=== PATIENT | female | born 1955 | race Caucasian/White ===

== ENCOUNTER 2017-01-15 07:58 | Inpatient (IN) | payer BC ==
[2016-12-30 13:23] VITALS: BMI 33.0
--- NOTE | 2016-12-30 13:52 | PAT Medication Instructions ---
Service Date Dec 30, 2016. Current Home Medication List Atorvastatin (Lipitor), 40 MG PO QPM Cholecalciferol (D3 Maximum Strength), 1 CAP PO QAM Cyanocobalamin (Vitamin B-12), 1,000 MCG PO QAM Cyclobenzaprine Hcl (Flexeril), 10 MG PO HS PRN for Muscle Spasms Docusate Sodium (Colace), 2 TAB PO BID Gabapentin (Neurontin), 100 MG PO HS Levocetirizine Dihydrochloride (Xyzal), 1 TAB PO QPM Levothyroxine Sodium (Synthroid), 137 MCG PO 6 DAYS A WEEK Levothyroxine Sodium (Synthroid), MCG PO TUESDAYS Lorazepam (Ativan), 0.5 MG PO HS Montelukast Sodium (Singulair), 10 MG PO QAM Oxycodone/Acetaminophen 10MG/325MG (Percocet 10MG/325MG), 1 TAB PO HS PRN for Pain Pantoprazole (Protonix), 40 MG PO BID Propranolol (Inderal), 10 MG PO BID Saccharomyces Boulardii (Probiotic), Unknown Dose QAM Medication Instructions For Your Scheduled Surgery - Hold the following medications the morning of surgery: Docusate Sodium (Colace), 2 TAB PO BID Cholecalciferol (D3 Maximum Strength), 1 CAP PO QAM Saccharomyces Boulardii (Probiotic), Unknown Dose QAM Cyanocobalamin (Vitamin B-12), 1,000 MCG PO QAM - Take the following medications the morning of surgery with a sip of water OTHERWISE NOTHING TO EAT OR DRINK AFTER MIDNIGHT: Pantoprazole (Protonix), 40 MG PO BID Propranolol (Inderal), 10 MG PO BID Montelukast Sodium (Singulair), 10 MG PO QAM Oxycodone/Acetaminophen 10MG/325MG (Percocet 10MG/325MG), 1 TAB PO HS PRN for Pain (may take up to 4 hours prior to surgery if needed) - Take the following medications as scheduled the night before surgery: Levothyroxine Sodium (Synthroid) Docusate Sodium (Colace), 2 TAB PO BID Cyclobenzaprine Hcl (Flexeril), 10 MG PO HS PRN for Muscle Spasms Lorazepam (Ativan), 0.5 MG PO HS Gabapentin (Neurontin), 100 MG PO HS Pantoprazole (Protonix), 40 MG PO BID Propranolol (Inderal), 10 MG PO BID Atorvastatin (Lipitor), 40 MG PO QPM Levocetirizine Dihydrochloride (Xyzal), 1 TAB PO QPM Oxycodone/Acetaminophen 10MG/325MG (Percocet 10MG/325MG), 1 TAB PO HS PRN for Pain If you have any questions please call us at [phone] or [phone] or [phone]
[2016-12-30 14:20] LABS: BASO % 0.6 %; BASO ABS # 0.05 K/uL (0-0.2); COMPLETE YES; EOS % 1.6 %; HEMATOCRIT 44.5 % (37-47); IG% 0.3 %; LYMPH % 29.7 %; LYMPH ABS # 2.67 K/uL (1.2-3.4); MEAN CELL VOLUME 91.2 fL (80-100); MEAN CORPUSCULAR HEMOGLOBIN 31.6 pg (25-34); MEAN CORPUSCULAR HGB CONC 34.6 g/dl (32-36); MEAN PLATELET VOLUME 8.8 fL (7.4-10.4); MONO % 9.7 %; NEUT % 58.1 %; PLATELET COUNT 128 K/uL (130-400); RED BLOOD COUNT 4.88 M/uL (4.2-5.4)
--- NOTE | 2016-12-30 14:24 | DIAGNOSTIC IMAGING REPORT ---
CHEST PREADMISSION(PA/LAT) CLINICAL HISTORY: Preoperative evaluation. COMPARISON STUDY: Chest radiograph March 06, 2013. FINDINGS: Lung volumes are normal. There is no pneumothorax or pleural effusion. Cardiac size is normal. Mediastinal contours are normal. There is no evidence of pulmonary edema. A 5 mm subpleural nodular density within the left lower lung is likely benign. IMPRESSION: No acute cardiopulmonary findings. Electronically signed by: Peter Cochran M.D. 12/30/2016 2:21 PM Dictated Date/Time: 12/30/2016 2:20 PM
[2016-12-30 14:51] LABS: URINE APPEARANCE CLEAR (CLEAR); URINE BILIRUBIN NEG (NEG); URINE COLOR YELLOW; URINE NITRITE NEG (NEG); URINE PH 7.5 (4.5-7.5); URINE SPECIFIC GRAVITY 1.009 (1.000-1.030); UROBILINOGEN NEG (NEG)
[2016-12-30 14:54] LABS: MANUAL MICROSCOPIC REQUIRED? NO; REVIEW REQ? NO
[2016-12-30 15:30] LABS: CALCIUM 9.5 mg/dl (8.5-10.1)
[2016-12-30 15:58] LABS: BUN/CREATININE RATIO 14.9 (10-20); CREATININE 0.8 mg/dl (0.60-1.20); POTASSIUM 3.9 mmol/L (3.5-5.1)
[~2017-01-15] VITALS: Ht 160 cm; Wt 86.6 kg
[2017-01-15] VITALS (17 sets, daily range): BP systolic 127–153; BP diastolic 72–88; PULSE 16–80; TEMP 36.3–36.8; O2SAT 95–100; Ht 160 cm; Wt 86.6 kg
[~2017-01-15 07:58] MED LIST: ANCEF - ALLERGY NOTED TO ORDERED MEDICATION SCH; CEFAZOLIN 2000 MG/60 ML D5W IV SCH; CHOL1CAP79 PO; CLC100X PO; CYAN10005 PO; CYCL10TA6 PO; LACTATED RINGER'S 1000ML 1,000 ML IV SCH; LEVO125T72 PO; LEVO5TAB2 PO; LORA-741 PO; LPT/40 PO; MONT1TAB3 PO; NRN/100 PO; OXYC-106 PO; PANT40TA PO; PROP10TA7 PO; SACC250C11
[2017-01-15] MEDS ORDERED: MIDAZOLAM HCL 1 MG/ML 2ML VIAL ONE (08:33)
[2017-01-15] MEDS ORDERED: FENTANYL CITRATE INJ 50 MCG/1 ML 2 ML VIAL ONE ×3 (08:33→09:33)
--- NOTE | 2017-01-15 08:40 | History & Physical Bridge Note ---
H&P Re-Evaluation Bridge Note: I have examined the patient, reviewed the History & Physical and in the interval since the performance of the History & Physical I have noted the following changes of clinical significance: No changes noted
--- NOTE | 2017-01-15 08:41 | History and Physical ---
History & Physical Date January 15, 2017. History of Present Illness The patient is a 61 year old female with complaints of Past Medical/Surgical History neck and arm pain Additional History Hepatic Disease: No Endocrine Disorder: No Kidney Disease: No Hypertension: No Heart Disease: No Bleeding Tendencies: No Infectious Diseases: No Allergies Coded Allergies: Aspirin (Verified Allergy, Severe, anaphylaxis, 01/15/17) Penicillins (Verified Allergy, Intermediate, HIVES, 01/15/17) Home Medications Scheduled Atorvastatin (Lipitor), 40 MG PO QPM Cholecalciferol (D3 Maximum Strength), 1 CAP PO QAM Cyanocobalamin (Vitamin B-12), 1,000 MCG PO QAM Docusate Sodium (Colace), 2 TAB PO BID Gabapentin (Neurontin), 100 MG PO HS Levocetirizine Dihydrochloride (Xyzal), 1 TAB PO QPM Levothyroxine Sodium (Synthroid), 137 MCG PO 6 DAYS A WEEK Levothyroxine Sodium (Synthroid), MCG PO TUESDAYS Lorazepam (Ativan), 0.5 MG PO HS Montelukast Sodium (Singulair), 10 MG PO QAM Pantoprazole (Protonix), 40 MG PO BID Propranolol (Inderal), 10 MG PO BID Saccharomyces Boulardii (Probiotic), Unknown Dose QAM Scheduled PRN Cyclobenzaprine Hcl (Flexeril), 10 MG PO HS PRN for Muscle Spasms Oxycodone/Acetaminophen 10MG/325MG (Percocet 10MG/325MG), 1 TAB PO HS PRN for Pain Physical Examination Skin: warm/dry, no rash Eyes: normal inspection, EOMI, sclerae normal ENT: normal ENT inspection, pharynx normal Head: normocephalic, atraumatic Neck: supple, no adenopathy, trachea midline Respiratory/Chest: lungs clear, normal breath sounds, no respiratory distress Cardiovascular: regular rate, rhythm, no edema, no murmur Abdomen / GI: normal bowel sounds, non tender Back: normal inspection Extremities: normal inspection, normal range of motion Neurologic/Psych: no motor/sensory deficits, alert, normal reflexes, oriented x 3 Diagnosis cervical stenosis Plan of Treatment corpectomy C5 discectomy C6-7 fusion C4-C7
[2017-01-15] MEDS ORDERED: BACITRACIN 50000 UNIT VIAL ONE (09:00)
[2017-01-15] MEDS ORDERED: SODIUM CHLORIDE 0.9% PF 50 ML VIAL ONE (09:00)
[2017-01-15] MEDS ORDERED: NURSING VERBAL MED ORDER STA ×2 (09:07→13:48)
[2017-01-15] MEDS ORDERED: ICU SEVERE HYPERGLYCEMIA PROTOCOL ONE (09:15)
[2017-01-15] MEDS ORDERED: NURSING ICU ELECTROLYTE ORDER ONE (09:15)
[2017-01-15] MEDS ORDERED: NURSING DECISION MEDICATION ORDER SCH (09:15)
[2017-01-15] MEDS ORDERED: HYDROmorphone INJ 2 MG/ML SYR/VIAL ONE ×2 (09:33→11:06)
[2017-01-15] MEDS ORDERED: LABETALOL HCL IV 5 MG/ML 20ML IV PRN (09:45)
[2017-01-15] MEDS ORDERED: EpHEDrine SULFATE INJ 50 MG/ML AMP IV PRN (09:45)
[2017-01-15] MEDS ORDERED: ATROPINE SULFATE 0.1 MG/ML 5ML SYR IV PRN (09:45)
[2017-01-15] MEDS ORDERED: MEPERIDINE HCL 25 MG/ML CARP IV PRN (09:45)
[2017-01-15] MEDS ORDERED: ONDANSETRON INJ 2 MG/ML 2 ML VIAL IV PRN ×2 (09:45→11:15)
[2017-01-15] MEDS ORDERED: PROPOFOL IV EMULSION 10 MG/ML 20 ML VIAL IV ONE (10:54)
[2017-01-15] MEDS ORDERED: ROCURONIUM BROMIDE 10 MG/ML 5 ML VIAL ONE (10:54)
[2017-01-15] MEDS ORDERED: DEXAMETHASONE SOD INJ 4 MG/ML VIAL ONE (10:54)
[2017-01-15] MEDS ORDERED: ONDANSETRON INJ 2 MG/ML 2 ML VIAL ONE ×2 (10:54→11:07)
[2017-01-15] MEDS ORDERED: LIDOCAINE HCL 2% 2 ML VIAL (20MG/ML) ONE (10:54)
[2017-01-15] MEDS ORDERED: FLOSEAL HEMOSTATIC MATRIX 5ML TOP ONE (11:01)
[2017-01-15] MEDS ORDERED: PHENYLEPHRINE 100MCG/ML 5ML SYR ONE (11:07)
[2017-01-15] MEDS ORDERED: GLYCOPYRROLATE INJ 0.2 MG/ML VIAL ONE (11:07)
[2017-01-15] MEDS ORDERED: NEOSTIGMINE METHYLSULFATE 1 MG/ML 10ML VIAL ONE (11:07)
[2017-01-15] MEDS ORDERED: LORAZEPAM 0.5 MG TAB PO PRN (11:15)
[2017-01-15] MEDS ORDERED: RACEPINEPHRINE 2.25% NEBU SOLN 0.5 ML VIAL INH PRN (11:15)
[2017-01-15] MEDS ORDERED: DO NOT ADMINISTER PNEUMOCOCCAL VACCINE PRN ×2 (11:15)
[2017-01-15] MEDS ORDERED: HYDROmorphone INJ 1 MG/ML SYR IV PRN (11:15)
[2017-01-15] MEDS ORDERED: MAGNESIUM HYDROXIDE SUSP 30 ML UDC PO PRN (11:15)
[2017-01-15] MEDS ORDERED: DiphenhydrAMINE HCL 50 MG/ML VIAL IV PRN (11:15)
[2017-01-15] MEDS ORDERED: LORAZEPAM INJ 0.5 MG in SYRINGE 0.75 ML IV PRN (11:15)
[2017-01-15] MEDS ORDERED: DO NOT ADMINISTER FLU VACCINE PRN ×3 (11:15)
[2017-01-15] MEDS ORDERED: DEXAMETHASONE INJ 8 MG in SYRINGE 0 ML IV PRN (11:15)
[2017-01-15] MEDS ORDERED: NALOXONE HCL 0.4 MG/1 ML VIAL/CARP IV PRN (11:15)
[2017-01-15] MEDS ORDERED: ACETAMINOPHEN IV 100 ML IV PRN (11:15)
[2017-01-15] MEDS: FENTANYL CITRATE INJ 50 MCG/1 ML 2 ML VIAL IV PRN ×4 (11:26→11:47)
--- NOTE | 2017-01-15 11:50 | OPERATIVE REPORT ---
DATE OF OPERATION: 01/15/2017 PREOPERATIVE DIAGNOSIS: Cervical spondylosis with myeloradiculopathy. POSTOPERATIVE DIAGNOSIS: Same. PROCEDURE PERFORMED: 1. Anterior cervical corpectomy C5. 2. Anterior cervical discectomy C6-C7. 3. Anterior cervical arthrodesis C4-C6 and C6-C7. 4. Placement of PEEK cage 23 mm in height at C4-C6 and 7 mm at C6-C7. 5. Placement of locally harvested morcellized autograft combined with Katlyn bone grafting in the interbody cages. 6. Application of Macias plate and screws from C4-C7. SURGEON: Dr. Jose Philip. MACHINE STONECUTTER: Kashmir Huffman PA-C. Due to the complex nature of the procedure, the entire surgery was performed with the dental chairside assistant of Kashmir Huffman PA-C. The senior administrative assistant, under direct supervision, was involved in the actual performance of all aspects of the surgical procedure including hemostasis, tissue retraction and incision, instrument management, patient positioning, and wound closure. ANESTHESIA: General. DISPOSITION: The patient awakened and taken to PACU in stable condition. HISTORY OF PATIENT'S PROBLEMS: This is a 61-year-old female who presents with above-mentioned diagnosis. After failing an extensive course of nonoperative care, elected to undergo the above-mentioned procedure. Risks, benefits, pros, cons, and alternatives were outlined in detail preoperatively. OPERATION AND FINDINGS: PROCEDURE: The patient was met with preoperatively, case discussed and all questions were addressed. At that point the patient was taken back to operative suite and after undergoing successful general intubation by the department of anesthesia was placed in supine position on Keagan table with head in Bruce head of quality. All bony prominences were well padded and the eyes were inspected to ensure there was no external pressure placed upon them. At this point the anterior cervical spine was prepped and draped in normal sterile fashion. With assistance of fluoroscopy, we identified the C5-C6 disc space and transverse incision was placed along the right anterior aspect of the cervical spine overlying this region. Sharp dissection with the assistance of Bovie cautery was performed down to and exposing the anterior cervical spine from C4-C7. A self-retaining retractor was placed. We verified our position with fluoroscopy. A complete discectomy of C4-5 was performed out to the uncovertebral joints bilaterally followed by C5-C6. Austin distracting pins were then placed in C4 and C6 to distract across C5 vertebral body. A complete corpectomy was then performed removing all posterior annular fibers as well as a longitudinal ligament for adequate decompression. Endplates were then burred to subcortical bleeding bone and a 23 mm PEEK cage filled with Katlyn bone grafting, locally harvested morselized autograft tapped into position. Distracting apparatus was removed and we proceeded to C6-C7. Again, a complete discectomy was performed out to the uncovertebral joints bilaterally. Austin distracting pins were utilized to assist us in our visualization. Endplates were then burred to subcortical bleeding bone and a 7 mm PEEK cage filled with Katlyn bone grafting and locally harvested morselized autograft tapped in position. Distractor apparatus was removed. All anterior osteophytes burred to a smooth cortical surface and a Macias plate and screws applied with the assistance of fluoroscopy. The incision was then copiously irrigated, explored to ensure there was no damage to surrounding structures or remaining bleeding, 10 round KAM drain inserted then closed with 2-0 Vicryl in the fascia, 4-0 Monocryl for final skin closure. Steri-Strips and sterile dressing placed. The patient was awakened and taken to PACU in stable condition. I attest to the content of the Intraoperative Record and any orders documented therein. Any exceptio ns are noted below.
[2017-01-15] MEDS: HYDROmorphone INJ 1 MG/ML SYR IV PRN ×3 (11:54→12:00)
--- NOTE | 2017-01-15 12:52 | Anesthesiology Progress Note ---
Anesthesia Post Op Note Date & Time January 15, 2017 at 12:52 Vital Signs Pain Intensity: 2 Vital Signs Past 12 Hours Date Time Temp Pulse Resp B/P Pulse Ox O2 Delivery O2 Flow Rate FiO2 01/15/17 12:45 54 18 154/76 100 Nasal Cannula 2 01/15/17 12:40 135/76 01/15/17 12:37 59 18 100 01/15/17 12:37 60 18 01/15/17 12:35 134/76 01/15/17 12:33 36.7 66 18 134/76 100 Nasal Cannula 2 01/15/17 12:32 56 16 99 01/15/17 12:32 55 16 01/15/17 12:31 60 12 01/15/17 12:31 58 12 100 01/15/17 12:30 141/84 01/15/17 12:26 57 16 01/15/17 12:26 58 16 130/93 99 01/15/17 12:21 57 13 01/15/17 12:21 56 13 122/76 99 01/15/17 12:16 71 15 144/68 99 01/15/17 12:16 70 15 01/15/17 12:11 46 13 99 01/15/17 12:11 46 13 01/15/17 12:10 131/70 01/15/17 12:06 55 12 130/73 96 01/15/17 12:06 56 12 01/15/17 12:01 63 20 99 01/15/17 12:01 62 20 01/15/17 12:00 135/76 01/15/17 11:56 65 15 99 01/15/17 11:56 68 15 01/15/17 11:55 127/78 01/15/17 11:53 124/82 01/15/17 11:51 56 13 97 01/15/17 11:51 55 13 01/15/17 11:45 55 16 114/86 99 Nasal Cannula 2 01/15/17 11:35 60 15 142/74 100 Mask 10 01/15/17 11:25 64 22 139/76 99 Mask 10 01/15/17 11:16 36.0 81 14 127/73 97 Mask 10 01/15/17 08:14 36.7 64 18 142/83 98 Room Air Notes Mental Status: alert / awake / arousable, participated in evaluation Pt Amnestic to Procedure: Yes Nausea / Vomiting: adequately controlled Pain: adequately controlled Airway Patency, RR, SpO2: stable & adequate BP & HR: stable & adequate Hydration State: stable & adequate Anesthetic Complications: no major complications apparent
[2017-01-15] MEDS ORDERED: OXYCODONE HCL IR 5 MG TAB (IMMEDIATE RELEASE) ONE (13:13)
--- NOTE | 2017-01-15 14:14 | DIAGNOSTIC IMAGING REPORT ---
Cervical spine CERVICAL 2 OR 3 VIEWS CLINICAL HISTORY: C6-C7 ACDF operative evaluation TECHNIQUE: Image intensifier COMPARISON STUDY: None FINDINGS: 2 views the image intensifier were obtained. These show evidence for an anterior fusion from C4 through C7. There is a corpectomy at C5. Disc spaces are present. Alignment is grossly anatomic. IMPRESSION: Anterior fusion and corpectomy. Electronically signed by: Vishnu Bazan M.D. 01/15/2017 2:13 PM Dictated Date/Time: 01/15/2017 2:12 PM
[2017-01-15] MEDS ORDERED: RXC5 PO (14:18)
--- NOTE | 2017-01-15 14:18 | Discharge Instructions ---
Discharge Instructions Date of Service January 15, 2017. Admission Reason for Admission: Spinal Stenosis Discharge Discharge Diagnosis / Problem: stenosis Discharge Goals Goal(s): Improve function Activity Recommendations Activity Limitations: per Instructions/Follow-up section . Current Hospital Diet Patient's current hospital diet: Clear Liquid Diet Discharge Diet Recommended Diet: Regular Diet Procedures Procedures Performed: C6-C7 Anterior Cervical Discectomy and Fusion; Removal of Intervertebral Disc / Decompression; Placement of Prosthetic Spacer / with the use of Katlyn Allograft, Anterior Plate and Screw Fixation; C5 Corpectomy Pending Studies Studies pending at discharge: no Medical Emergencies . Who to Call and When: Medical Emergencies: If at any time you feel your situation is an emergency, please call 911 immediately. . Non-Emergent Contact Non-Emergency issues call your: Primary Care Provider . "Provider Documentation" section prepared by Jose Philip. . VTE Core Measure Inpt VTE Proph given/why not?: Tian Whitfield, JO's
[2017-01-15] MEDS: SODIUM CHLORIDE 0.9% 1000ML 1,000 ML IV SCH (14:42)
[2017-01-15] MEDS ORDERED: SCOPOLAMINE 1.5 MG TDSY TD SCH (15:00)
[2017-01-15] MEDS: DEXAMETHASONE INJ 6 MG in SYRINGE 0 ML IV SCH (15:44)
[2017-01-15] MEDS: CHECK SCOPOLAMINE PATCH PLACEMENT SCH (15:44)
[2017-01-15] MEDS: CLINDAMYCIN IV 600 MG in DEXTROSE 5% ADD-VANTAGE 50ML 50 ML IV SCH (17:42)
[2017-01-15] MEDS ORDERED: GABAPENTIN 100 MG CAP PO SCH (21:00)
[2017-01-15] MEDS ORDERED: ATORVASTATIN 40 MG TAB PO SCH (21:00)
[2017-01-15] MEDS: PROPRANOLOL HCL 10 MG TAB PO SCH (22:08)
[2017-01-15] MEDS: PANTOprazole SOD 40 MG TAB PO SCH (22:09)
[2017-01-15] MEDS: DOCUSATE SODIUM 100 MG CAP PO SCH (22:09)
[2017-01-15] MEDS: OXYCODONE HCL IR 5 MG TAB (IMMEDIATE RELEASE) PO PRN (22:17)
[2017-01-16] VITALS (16 sets, daily range): BP systolic 120–138; BP diastolic 77–84; PULSE 54–78; TEMP 36.6–37; O2SAT 93–98
[2017-01-16] MEDS: CLINDAMYCIN IV 600 MG in DEXTROSE 5% ADD-VANTAGE 50ML 50 ML IV SCH ×2 (00:12→08:58)
[2017-01-16] MEDS: SODIUM CHLORIDE 0.9% 1000ML 1,000 ML IV SCH (00:12)
[2017-01-16] MEDS: DEXAMETHASONE INJ 6 MG in SYRINGE 0 ML IV SCH ×2 (00:13→08:19)
[2017-01-16] MEDS: OXYCODONE HCL IR 5 MG TAB (IMMEDIATE RELEASE) PO PRN ×4 (00:14→14:14)
[2017-01-16] MEDS: CHECK SCOPOLAMINE PATCH PLACEMENT SCH ×2 (00:14→07:17)
[2017-01-16] MEDS ORDERED: LEVOTHYROXINE 137 MCG TAB PO SCH (06:30)
[2017-01-16] MEDS: PROPRANOLOL HCL 10 MG TAB PO SCH (08:58)
[2017-01-16] MEDS: PANTOprazole SOD 40 MG TAB PO SCH (08:58)
[2017-01-16] MEDS: DOCUSATE SODIUM 100 MG CAP PO SCH (08:58)
[2017-01-16] MEDS ORDERED: MONTELUKAST SOD 10 MG TAB PO SCH (09:00)
--- NOTE | 2017-01-16 15:39 | DISCHARGE SUMMARY ---
PRINCIPAL DIAGNOSES: Cervical spondylosis, myeloradiculopathy. HOSPITAL COURSE FOLLOWS: On 01/15/2017 the patient underwent anterior cervical decompression and fusion, tolerated this well and taken to the orthopedic floor postoperatively. Postop day #1, she was up and ambulatory, swallowing well, arm symptoms improved. No hoarseness. Pain controlled. Subsequently discharged home. Discharge orders and instructions can be found on the chart for further review.
[2017-01-17] MEDS ORDERED: BISACODYL 5 MG TABEC PO PRN (06:00)
[2017-01-17] MEDS ORDERED: BISACODYL 10 MG SUPP PR PRN (06:00)
[2017-01-17] MEDS ORDERED: POLYETHYLENE (MIRALAX) 17 GM PACK PO SCH (09:00)
[2017-01-19] MEDS ORDERED: LEVOTHYROXINE 137 MCG TAB PO SCH (06:30)
== END 2017-01-16 14:20 | disposition home or self-care (01) | DRG 473 ==
LOC: ENRESERVDT → ENRESERVTM → C.ACU 07:58 → C.3E 08:50
PROVIDERS: ADMIT Orthopaedic Surgery Orthopaedic Surgery of the Spine; ATTEND Orthopaedic Surgery Orthopaedic Surgery of the Spine
PROC: 0RG2070 Fusion of 2 or more Cervical Vertebral Joints with Autologous Tissue Substitute, Anterior Approach, Anterior Column, Open Approach (ICD-10-PCS; principal; 2017-01-15 10:15)
PROC: 0RG20A0 Fusion of 2 or more Cervical Vertebral Joints with Interbody Fusion Device, Anterior Approach, Anterior Column, Open Approach (ICD-10-PCS; principal; 2017-01-15 10:15)
PROC: 0RT30ZZ Resection of Cervical Vertebral Disc, Open Approach (ICD-10-PCS; principal; 2017-01-15 10:15)
DX: M47.12 Other spondylosis with myelopathy, cervical region (principal); M47.22 Other spondylosis with radiculopathy, cervical region; M47.892 Other spondylosis, cervical region; Z79.899 Other long term (current) drug therapy

== ENCOUNTER 2023-02-17 11:31 | Inpatient (IN) ==
--- NOTE | 2023-01-22 15:05 | PAT Medication Instructions ---
Medication Instructions Date of Service January 22, 2023 Home Medications Lactobacillus acidophilus 10 billion cell capsule (Probiotic) 1 dose PO QAM atorvastatin 40 mg tablet 40 mg PO HS cholecalciferol (vitamin D3) 50 mcg (2,000 unit) capsule (Vitamin D3) 2,000 unit PO QAM cyclobenzaprine 10 mg tablet 10 mg PO HS PRN levocetirizine 5 mg tablet (Xyzal) 5 mg PO HS levothyroxine 100 mcg tablet 100 mcg PO QAM montelukast 10 mg tablet (Singulair) 10 mg PO QAM pantoprazole 40 mg tablet,delayed release (Protonix) 40 mg PO BID propranolol 10 mg tablet 10 mg PO BID acetaminophen 500 mg tablet (Pain Reliever (acetaminophen)) 1,000 mg PO UD PRN DO NOT take the morning of surgery Lactobacillus acidophilus 10 billion cell capsule (Probiotic) 1 dose PO QAM cholecalciferol (vitamin D3) 50 mcg (2,000 unit) capsule (Vitamin D3) 2,000 unit PO QAM Take morning of surgery With a small sip of water, OTHERWISE NOTHING TO EAT OR DRINK AFTER MIDNIGHT: levothyroxine 100 mcg tablet 100 mcg PO QAM montelukast 10 mg tablet (Singulair) 10 mg PO QAM pantoprazole 40 mg tablet,delayed release (Protonix) 40 mg PO BID propranolol 10 mg tablet 10 mg PO BID acetaminophen 500 mg tablet (Pain Reliever (acetaminophen)) 1,000 mg PO UD PRN (if needed) Take evening before surgery atorvastatin 40 mg tablet 40 mg PO HS cyclobenzaprine 10 mg tablet 10 mg PO HS PRN(if needed) levocetirizine 5 mg tablet (Xyzal) 5 mg PO HS pantoprazole 40 mg tablet,delayed release (Protonix) 40 mg PO BID propranolol 10 mg tablet 10 mg PO BID acetaminophen 500 mg tablet (Pain Reliever (acetaminophen)) 1,000 mg PO UD PRN (if needed) Other Notes If you have any questions please call us at [phone] or [phone] or [phone] or [phone]
--- NOTE | 2023-02-03 11:50 | Anesthesiology Consultation ---
Date of Service February 03, 2023 Assessment & Plan (1) Encounter for pre-operative examination: Chart Review Chart Review: Acceptable Risk for Surgery (pending PAT Covid test and PCP clearance 02/09/23) and Patient seen in Pre Admission Testing Awaiting PCP clearance scheduled 02/09/23 Per [facility] appt on 02/03/23, patient denies any recent travel or large group activities. Pt admits to recent allergy symptoms. No known Covid exposures in the past 21 days. Denies testing Covid positive in the past 90 days. Pt is vaccinated for Covid. Preop Covid testing done at [facility] appt 02/03/23= results pending. Educated on importance of using Covid precautions one week prior to surgery ACDF C6-C7, Kumar C5, C4-C5 fusion 01/15/17= Done under [place] with Grade 1 view with MAC #3. ETT #7.0 Teaching & Discussion Pre-Anesthesia Teaching/Discussion Notes: Instructed NPO after midnight before surgery,except medications with 15 cc of water. Medication instructions provided according to the [facility] guidelines. History Surgery Operation Date: 02/17/23 13:15 Proposed Procedures p L2-L4 Decompression and Fusion, L4-L5 Hardware Removal, Spinal Cord Monitoring - Jose Philip, Height/Weight Height: 5 ft 4 in Weight: 77 kg Allergies Allergy/AdvReac Type Severity Reaction Status Date / Time aspirin Allergy Unknown anaphylaxis Verified 01/22/23 13:04 Penicillins Allergy Unknown HX HIVES Verified 01/22/23 13:04 Medications Home Medications Medication Instructions Recorded Confirmed Last Taken Lactobacillus acidophilus 10 1 dose PO QAM 08/16/18 01/22/23 08/23/18 06:30 billion cell capsule (Probiotic) atorvastatin 40 mg tablet 40 mg PO HS 08/16/18 01/22/23 08/22/18 19:00 cholecalciferol (vitamin D3) 50 2,000 unit PO QAM 08/16/18 01/22/23 08/23/18 06:30 mcg (2,000 unit) capsule (Vitamin D3) cyclobenzaprine 10 mg tablet 10 mg PO HS PRN MUSCLE SPASMS 08/16/18 01/22/23 Unknown levocetirizine 5 mg tablet (Xyzal) 5 mg PO HS 08/16/18 01/22/23 08/22/18 19:00 levothyroxine 100 mcg tablet 100 mcg PO QAM 08/16/18 01/22/23 08/24/18 03:30 montelukast 10 mg tablet 10 mg PO QAM 08/16/18 01/22/23 08/23/18 06:30 (Singulair) pantoprazole 40 mg tablet,delayed 40 mg PO BID 08/16/18 01/22/23 08/24/18 03:30 release (Protonix) propranolol 10 mg tablet 10 mg PO BID 08/16/18 01/22/23 08/24/18 03:30 acetaminophen 500 mg tablet (Pain 1,000 mg PO UD PRN ACHES AND PAINS 01/22/23 01/22/23 Unknown Reliever (acetaminophen)) Past Medical History Medical History (Updated 02/03/23 @ 15:12 by Celeste Craven PA-C) Back problem GERD (gastroesophageal reflux disease) CONTROLLED History of cleft palate S/P REPAIR AT AGE 4- complete repair No current issues History of colon polyps Precancerous polpys- next c-scope 2024 History of pyloric stenosis as a child S/P REPAIR IN INFANCY Hyperlipidemia Hypertension Hypothyroidism S/p partial thyroidectomy due to hyperthyroidism Seasonal allergies Sleep apnea CPAP- using without water (due to recall)- was told okay by [facility] - encouraged to follow up with PCP at 02/03/23 PAT appt Thrombocytopenia Chronic and mild No hx of follow up with hematology Plts at PAT appt 02/03/23 were 122 Exercise / Class Metabolic Activity II 4-5 Yardwork/Stairs/Walk up hill (one flight of stairs - no chest pain or SOB ) Past Family History Family History Other Atrial fibrillation Hypertension Rheumatoid arthritis Past Surgical History Surgical History Fusion of spine ACDF C6-C7; C5 CORPECTOMY, C4-C7 FUSION= 01/15/17= GRADE 1 VIEW, MAC 3, ETT 7.0 L4-L5 FUSION= 03/03/13= DVL X1, ETT 7.5 AT [facility] [place] LIMITED ROM TILTING HEAD BACK. History of adenoidectomy History of appendectomy History of arthroscopy LEFT KNEE History of cardiac cath 10+ YEARS AGO= NO STENTS History of cleft palate S/P REPAIR AT AGE 4 History of colonoscopy History of esophagogastroduodenoscopy (EGD) History of hysterectomy ATIYA/LSO History of laparoscopy 2/2 ENDOMETRIOSIS History of lumbar spinal fusion History of salpingo-oophorectomy RIGHT History of thyroidectomy, subtotal 2/2 HYPERTHROIDISM History of tonsillectomy History of total left knee replacement History of tracheostomy IN [place]ANC[place] PRIOR TO PYLORIC STENOSIS DIAGNOSIS/REPAIR Past Anesthesia History No Hx of Anesthesia Complications and No Family Hx of Anesthesia Complications History of PONV No Hx of PONV and No Hx of Motion Sickness Social History Smoking Status: Current every day smoker tobacco type: cigarettes Smoking cigarettes per day: 3/4 PPD/ADVISED NPO Do You Dip or Chew Tobacco: No Hx Alcohol Use: Yes Alcohol type: beer alcohol intake frequency: a few times a month Hx Substance Use: No substance use type: does not use Review of Systems Patient denies chest pain, shortness of breath, dyspnea on exertion, cough, wheezing, palpitations. No hx of seizures, stroke, [place]. No hx of blood clots or blood transfusions Physical Exam Vital Signs VITALS BP 159/65 P 61 TEMP 98.3 SP02 99% RESP 16 Constitutional no acute distress ENMT Mouth: no TMJ clicking Thyromental Distance: < 3.5 Finger Breadths (3.0) Mallampati Class: I (cleft palate repair scar noted to palate ) Caps to side teeth Missing molars and side teeth Neck + limited neck extension Respiratory normal respiratory effort; no respiratory distress Auscultation: lungs clear to auscultation bilaterally; no wheezes Cardiovascular Rate/Rhythm: regular rate and regular rhythm Heart Sounds: no murmur Vessels: no carotid bruit Musculoskeletal Spine: + pain with cervical ROM (minimal ) Extremities: extremities normal to inspection Psychiatric Orientation: alert Lab Results Anesthesia Preop Results Results Anesthesia Widget: WBC 9.53 K/ul (4.8-10.8) 02/03/23 Hgb 14.6 g/dl (12.0-16.0) 02/03/23 Hct 43.5 % (37.0-47.0) 02/03/23 Plt 122 K/uL (130-400) L 02/03/23 Na 140 mmol/L (136-145) 02/03/23 K 4.1 mmol/L (3.5-5.1) 02/03/23 Cl 106 mmol/L (98-107) 02/03/23 CO2 27 mmol/L (21-32) 02/03/23 BUN 9 mg/dl (6-23) 02/03/23 Creat 0.77 mg/dl (0.6-1.2) 02/03/23 Glucose Level 141 mg/dl (70-99(Fasting)) H 02/03/23 PT 11.2 Seconds (9.0-12.0) 02/03/23 PTT 30.7 Seconds (21.0-31.0) 02/03/23 INR 1.0 (0.9-1.1) 02/03/23 Urine Color Yellow 02/03/23 Urine Appearance Clear (Clear) 02/03/23 Urine pH 5.5 (4.5-7.5) 02/03/23 Urine Specific [place] 1.017 (1.000-1.030) 02/03/23 Urine Protein Negative (Negative) 02/03/23 Urine Glucose (UA) Negative (Negative) 02/03/23 Urine Ketones Trace (Negative) H 02/03/23 Urine Blood Negative (Negative) 02/03/23 Urine Nitrite Negative (Negative) 02/03/23 Urine Bilirubin Negative (Negative) 02/03/23 Urine Urobilinogen Negative (Negative) 02/03/23 Urine Leukocyte Esterase Negative (Negative) 02/03/23 Blood Type O Positive 02/03/23 Antibody Screen NEGATIVE 02/03/23 Testing Laboratory Results Chronic thrombocytopenia since at least 2018 - stable and mildly improved from previous Electrocardiogram Date: 02/03/23 Findings: + SB @ (59bpm ) Otherwise normal EKG per cardio Chest X-Ray Date: 02/03/23 Findings: + NAD
[~2023-02-17 11:31] MED LIST changes: +ACETAMINOPHEN 500 MG TAB PO SCH; -ANCEF - ALLERGY NOTED TO ORDERED MEDICATION SCH; -CEFAZOLIN 2000 MG/60 ML D5W IV SCH; -CHOL1CAP79 PO; -CLC100X PO; +CLINDAMYCIN/D5W 900 MG/50 ML BAG IV SCH; -CYAN10005 PO; -CYCL10TA6 PO; +CeleBREX 200 MG CAP PO SCH; +FAMOTIDINE/PF 20 MG/2 ML VIAL IV ONE; +GABAPENTIN 300 MG CAP PO SCH; -LACTATED RINGER'S 1000ML 1,000 ML IV SCH; -LEVO125T72 PO; -LEVO5TAB2 PO; -LORA-741 PO; -LPT/40 PO; +LR 15ML/HR IV SCH; -MONT1TAB3 PO; -NRN/100 PO; -OXYC-106 PO; -PANT40TA PO; -PROP10TA7 PO; -SACC250C11
--- NOTE | 2023-02-17 11:59 | History & Physical Bridge Note ---
Date of Service February 17, 2023 History & Physical Bridge Note I have examined the patient, reviewed the History & Physical and in the interval since the performance of the History & Physical I have noted the following changes of clinical significance: no changes noted
--- NOTE | 2023-02-17 12:01 | History & Physical Report ---
Date of Service February 17, 2023 Assessment & Plan (1) Neurogenic claudication due to lumbar spinal stenosis: Plan: L2-L4 decompression and fusion, L4-L5 hardware removal lumbar spine History of Present Illness Chief Complaint: back and leg pain Primary Care Provider: Andreina Silverio Patient has undergone extensive course of nonoperative care and he has continued back and bilateral leg pain is here for surgical intervention. Allergies Allergy/AdvReac Type Severity Reaction Status Date / Time aspirin Allergy Unknown anaphylaxis Verified 02/17/23 11:57 Penicillins Allergy Unknown HX HIVES Verified 02/17/23 11:57 Home Medications Medication Instructions Recorded Confirmed Type Lactobacillus acidophilus 10 1 dose PO QAM 08/16/18 01/22/23 History billion cell capsule (Probiotic) atorvastatin 40 mg tablet 40 mg PO HS 08/16/18 01/22/23 History cholecalciferol (vitamin D3) 50 2,000 unit PO QAM 08/16/18 01/22/23 History mcg (2,000 unit) capsule (Vitamin D3) cyclobenzaprine 10 mg tablet 10 mg PO HS PRN MUSCLE SPASMS 08/16/18 01/22/23 History levocetirizine 5 mg tablet (Xyzal) 5 mg PO HS 08/16/18 01/22/23 History levothyroxine 100 mcg tablet 100 mcg PO QAM 08/16/18 01/22/23 History montelukast 10 mg tablet 10 mg PO QAM 08/16/18 01/22/23 History (Singulair) pantoprazole 40 mg tablet,delayed 40 mg PO BID 08/16/18 01/22/23 History release (Protonix) propranolol 10 mg tablet 10 mg PO BID 08/16/18 01/22/23 History acetaminophen 500 mg tablet (Pain 1,000 mg PO UD PRN ACHES AND PAINS 01/22/23 01/22/23 History Reliever (acetaminophen)) Past Med/Surg History Medical History (Updated 02/17/23 @ 12:01 by Jose Philip DO) Back problem GERD (gastroesophageal reflux disease) CONTROLLED History of cleft palate S/P REPAIR AT AGE 4- complete repair No current issues History of colon polyps Precancerous polpys- next c-scope 2024 History of pyloric stenosis as a child S/P REPAIR IN INFANCY Hyperlipidemia Hypertension Hypothyroidism S/p partial thyroidectomy due to hyperthyroidism Seasonal allergies Sleep apnea CPAP- using without water (due to recall)- was told okay by [employer] supply store - encouraged to follow up with PCP at 02/03/23 [facility] appt Thrombocytopenia Chronic and mild No hx of follow up with hematology Plts at [facility] appt 02/03/23 were 122 Surgical History Fusion of spine ACDF C6-C7; C5 CORPECTOMY, C4-C7 FUSION= 01/15/17= GRADE 1 VIEW, MAC 3, ETT 7.0 L4-L5 FUSION= 03/03/13= DVL X1, ETT 7.[address] [facility] LIMITED ROM TILTING HEAD BACK. History of adenoidectomy History of appendectomy History of arthroscopy LEFT KNEE History of cardiac cath 10+ YEARS AGO= NO STENTS History of cleft palate S/P REPAIR AT AGE 4 History of colonoscopy History of esophagogastroduodenoscopy (EGD) History of hysterectomy ATIYA/LSO History of laparoscopy 2/2 ENDOMETRIOSIS History of lumbar spinal fusion History of salpingo-oophorectomy RIGHT History of thyroidectomy, subtotal 2/2 HYPERTHROIDISM History of tonsillectomy History of total left knee replacement History of tracheostomy IN INFANCY PRIOR TO PYLORIC STENOSIS DIAGNOSIS/REPAIR Family History Other Atrial fibrillation Hypertension Rheumatoid arthritis Social History Smoking Status: Current every day smoker Cigarettes Per Day: 3/4 PPD/ADVISED NPO; Second Hand Exposure: No; Do You Dip or Chew Tobacco: No; Hx Alcohol Use: Yes Alcohol type: beer Hx Substance Use: No Preferred Language: Slovenian Communication Ability: Effective Visual Impairment: No Limitations Director Of Sustainable Design Required: No Beliefs That Will Affect Care: Anglican Anglican Beliefs: ANABAPTIST marital status: Current Living Situation: Spouse and Family Current Living Situation Comment: , SON,HIS GIRLFRIEND AND HIS 3 CHILDREN. Other Information That Helps Us Care for You: No Feels Safe at Home: Yes Assistive Devices: CPAP Physical Exam Physical Exam: Patient is alert and oriented Heart regular rhythm Lungs clear
[2023-02-17] MEDS ORDERED: LIDOCAINE 2% 2 ML VIAL/AMP(20MG/ML) INFIL ONE (12:39)
[2023-02-17] MEDS ORDERED: ROCURONIUM BROMIDE 10 MG/ML 5 ML VIAL IV ONE ×6 (12:39→15:47)
[2023-02-17] MEDS ORDERED: fentaNYL citrate PF 100 MCG/2 ML VIAL ONE ×2 (12:39→15:47)
[2023-02-17] MEDS ORDERED: ONDANSETRON INJ 2 MG/ML 2 ML VIAL ONE (12:39)
[2023-02-17] MEDS ORDERED: DEXAMETHASONE SOD INJ 4 MG/ML VIAL ONE (12:39)
[2023-02-17] MEDS ORDERED: PROPOFOL IV EMULSION 10 MG/ML 20 ML VIAL IV ONE (12:39)
[2023-02-17] MEDS ORDERED: MIDAZOLAM HCL 1 MG/ML 2ML VIAL ONE (12:43)
[2023-02-17] MEDS ORDERED: ONDANSETRON INJ 2 MG/ML 2 ML VIAL IV PRN ×2 (13:07→18:23)
[2023-02-17] MEDS ORDERED: HYDROmorphone INJ 2 MG/ML SYR/VIAL IV PRN (13:07)
[2023-02-17] MEDS ORDERED: ATROPINE SULFATE 0.1 MG/ML 10ML SYR IV PRN (13:07)
[2023-02-17] MEDS ORDERED: ePHEDrine sulfate 50 MG/ML AMP IV PRN (13:07)
[2023-02-17] MEDS ORDERED: PROMETHAZINE HCL 6.25 MG in SODIUM CHLORIDE 0.9% 50 ML IV PRN (13:07)
[2023-02-17] MEDS ORDERED: ceFAZolin 330 MG/ML 1 GM VIAL ONE (13:12)
[2023-02-17] MEDS ORDERED: BUPIVACAINE/EPINEPHRINE 0.25% 1:200,000 30 ML VIAL ONE (13:12)
[2023-02-17] MEDS ORDERED: ePHEDrine sulfate 50 MG/ML AMP ONE (14:41)
[2023-02-17] MEDS ORDERED: FLOSEAL HEMOSTATIC MATRIX 10ML TOP ONE (14:51)
[2023-02-17] MEDS ORDERED: SUGAMMADEX SODIUM 200 MG/2 ML VIAL IV ONE (16:00)
--- NOTE | 2023-02-17 16:04 | Operative Report ---
Post Operative Report Pre & Post Diagnosis Operation Date: 02/17/23 13:15 Pre-Op Diagnosis: Neurogenic claudication due to lumbar spinal stenosis Post-Op Diagnosis: Neurogenic claudication due to lumbar spinal stenosis I identified the patient and participated in the time-out.: Yes Procedure Operation Date: 02/17/23 13:15 Actual Procedures 1. Removal of instrumentation L4-L5. #2 exploration of fusion L4-5. #3 lumbar decompression bilaterally facetectomies and foraminotomies L2-L3 L3-L4. #4 posterior spinal fusion L2-L4 per #5 placement posterior instrumentation L2-L5. #6 interbody fusion L2-L3 L3-L4. #7 placement of Spira 10 x 26 mm cage at L2-L3 and 11 x 26 mm cage at L3-L4. #8 placement locally harvested morselized autograft in the posterior gutters. #9 placement of I factor and interbody space and infuse collagen sponge, master graft in the posterior gutters. Surgeon Jose Philip, Real Estate Agent/Broker Reshma Schultz Estimated Blood Loss 250 Findings Consistent with Post-Op Diagnosis Specimens none Indications This is a 67-year-old female who presents above-mentioned diagnosis after failing course of nonoperative care she is here for surgical intervention. Description of Procedure Patient was met with identified informed consent obtained. Patient was then taken to the operative suite underwent and the patient placed in a prone position on the Keagan table atop the Mor frame. All bony promises well- padded eyes inspected to ensure no external pressure placed upon the. This point lumbar spine was prepped and draped no sterile fashion. Sharp dissection with assistance of Bovie cautery to form down to and exposing the lamina transverse processes of L2-L3 and instrumentation at L4-L5 bilaterally. Then proceeded to move the hardware bilaterally explore the fusion mass noting it to be mature and intact. I then performed complete laminectomy of L3 and L 2 including medial facetectomies and foraminotomies addressing severe spinal stenosis. Pedicle screws then placed in L2 L3-L4-L5 bilaterally with assistance of fluoroscopy and appropriate sized melina placed. By way of a trans foraminal approach on the right complete discectomy of L3-L4 was performed endplates curetted to subcortical bleeding bone and a 11 x 26 mm Spira cage with I factor tapped in position. Then proceeded to L2-L3 and again bilateral transforaminal approach and right complete discectomy performed endplates guided to subcortically bone and a 10 x 26 mm Spira cage with I factor tapped in position. The rods were then locked into final position bilaterally. The transverse processes of L to L3-L4 burred to subcortical bleeding bone. Infuse collagen sponge mass graft locally harvested morselized autograft was placed in the posterior gutters. 15 round KAM drain inserted. The incision was then closed with 1 Vicryl to fascia 2-0 Vicryl subcutaneously and 4 Monocryl for final skin closure. Steri-Strips sterile dressing placed. Patient waken taken to PACU stable condition. Please note spinal cord monitoring was utilized at the procedure no changes noted. Lastly Reshma Schultz was present at the entire surgeon while the patient positioning complex portions of the surgery and final skin closure. I attest to the content of the Intraoperative Record and any orders documented therein. Any exceptions are noted below.
[2023-02-17] MEDS: fentaNYL citrate PF 100 MCG/2 ML VIAL IV PRN ×3 (16:38→17:07)
--- NOTE | 2023-02-17 18:14 | Hospitalist Consultation ---
Date of Consultation February 17, 2023 Assessment & Plan (1) S/P spinal surgery: This is a 67yo F with PMH of HTN, HLD, hypothyroidism, GERD, tobacco use and other medical problems listed below who is POD#0 s/p removal of instrumentation L4-L5, lumbar decompression bilaterally facetectomies and foraminotomies L2-L3 L3-L4 and posterior spinal fusion L2-L4, placement posterior instrumentation L2- L5 by Dr. Philip. POD#0 s/p removal of instrumentation L4-L5, exploration of fusion L4-5, lumbar decompression bilaterally facetectomies and foraminotomies L2-L3 L3-L4 and posterior spinal fusion L2-L4, placement posterior instrumentation L2-L5 by Dr. Philip Per ortho for pain control, wound care, anticoagulation and activities Monitor H&H (pre-op hgb 14.6, EBL 250ml) , continue incentive spirometry, PT/OT when appropriate (2) Hypertension: Normotensive. Continue propranolol BID with hold parameters (3) Hyperlipidemia: Continue atorvastatin (4) Tobacco use: Smokes 0.75 ppd. Discussed importance of smoking cessation for wound healing. Declined nicotine patch (5) Hypothyroidism: Continue levothyroxine DVT Ppx: SCDs per ortho Code status: FULL PCP: Andreina Silverio ([facility]) Dispo: Per primary service Patient seen in collaboration with Dr. Cherry. Please see addendum. I spent a total of 55 minutes coordinating, documenting, and providing care for this patient excluding time spent in the performance of separately billed services. Supervising Physician Co-Signing Physician Notes I have seen and examined the patient and have discussed the case with the provider above. I agree with the assessment and plan as stated. 67-year-old female status post back surgery earlier today. She reports some pain but has yet to receive any p.o. narcotic postoperatively yet. RN is aware and is getting her something for this. She denies any nausea or numbness or tingling in her feet. She is otherwise doing well. Medications were reviewed. Agree with management as listed above. Physical exam consistent with above notes. Thank you for this consultation. We will continue to follow her throughout her hospital stay. DO Dilip History of Present Illness Reason for Consultation: post op med mgmt Attending Physician: Jose Philip DO History of Present Illness This is a 67yo F with PMH of HTN, HLD, hypothyroidism, GERD, tobacco use and other medical problems listed below who is POD#0 s/p removal of instrumentation L4-L5, exploration of fusion L4-5, lumbar decompression bilaterally facetectomies and foraminotomies L2-L3 L3-L4 and posterior spinal fusion L2-L4, placement posterior instrumentation L2-L5 by Dr. Philip. Patient has some surgical site discomfort but denies any pain or paresthesias in lower extremities. Has been dozing on and off during dinner but tolerating clear liquids without nausea or vomiting. No headache, lightheadedness, chest pain, shortness of breath, abdominal pain, dysuria, diarrhea or constipation. Had bowel movement this morning prior to operation. Ortiz catheter in place. Receives primary care from [facility]. Smokes 0.75 pack per day. Allergies Allergy/AdvReac Type Severity Reaction Status Date / Time aspirin Allergy Unknown anaphylaxis Verified 02/17/23 11:57 Penicillins Allergy Unknown HX HIVES Verified 02/17/23 11:57 Home Medications Medication Instructions Recorded Confirmed Type Lactobacillus acidophilus 10 1 dose PO QAM 08/16/18 02/17/23 History billion cell capsule (Probiotic) atorvastatin 40 mg tablet 40 mg PO HS 08/16/18 02/17/23 History cholecalciferol (vitamin D3) 50 2,000 unit PO QAM 08/16/18 02/17/23 History mcg (2,000 unit) capsule (Vitamin D3) cyclobenzaprine 10 mg tablet 10 mg PO HS PRN MUSCLE SPASMS 08/16/18 02/17/23 History levocetirizine 5 mg tablet (Xyzal) 5 mg PO HS 08/16/18 02/17/23 History levothyroxine 100 mcg tablet 100 mcg PO QAM 08/16/18 02/17/23 History montelukast 10 mg tablet 10 mg PO QAM 08/16/18 02/17/23 History (Singulair) pantoprazole 40 mg tablet,delayed 40 mg PO BID 08/16/18 02/17/23 History release (Protonix) propranolol 10 mg tablet 10 mg PO BID 08/16/18 02/17/23 History acetaminophen 500 mg tablet (Pain 1,000 mg PO UD PRN ACHES AND PAINS 01/22/23 02/17/23 History Reliever (acetaminophen)) Patient History Medical History Back problem GERD (gastroesophageal reflux disease) CONTROLLED History of cleft palate S/P REPAIR AT AGE 4- complete repair No current issues History of colon polyps Precancerous polpys- next c-scope 2024 History of pyloric stenosis as a child S/P REPAIR IN INFANCY Hyperlipidemia Hypertension Hypothyroidism S/p partial thyroidectomy due to hyperthyroidism Seasonal allergies Sleep apnea CPAP- using without water (due to recall)- was told okay by [employer] supply store - encouraged to follow up with PCP at 02/03/23 [facility] appt Thrombocytopenia Chronic and mild No hx of follow up with hematology Plts at [facility] appt 02/03/23 were 122 Tobacco use Surgical History Fusion of spine ACDF C6-C7; C5 CORPECTOMY, C4-C7 FUSION= 01/15/17= GRADE 1 VIEW, MAC 3, ETT 7. 0 L4-L5 FUSION= 03/03/13= DVL X1, ETT 7.5 AT [facility] LIMITED ROM TILTING HEAD BACK. History of adenoidectomy History of appendectomy History of arthroscopy LEFT KNEE History of cardiac cath 10+ YEARS AGO= NO STENTS History of cleft palate S/P REPAIR AT AGE 4 History of colonoscopy History of esophagogastroduodenoscopy (EGD) History of hysterectomy ATIYA/LSO History of laparoscopy 2/2 ENDOMETRIOSIS History of lumbar spinal fusion History of salpingo-oophorectomy RIGHT History of thyroidectomy, subtotal 2/2 HYPERTHROIDISM History of tonsillectomy History of total left knee replacement History of tracheostomy IN INFANCY PRIOR TO PYLORIC STENOSIS DIAGNOSIS/REPAIR Family History Other Atrial fibrillation Hypertension Rheumatoid arthritis Social History Smoking Status: Current every day smoker Cigarettes Per Day: 3/4 PPD/ADVISED NPO; Second Hand Exposure: No; Do You Dip or Chew Tobacco: No; Hx Alcohol Use: Yes Alcohol type: beer Hx Substance Use: No Preferred Language: Syriac Communication Ability: Effective Visual Impairment: No Limitations Door Technician Required: No Beliefs That Will Affect Care: Nondenominational Nondenominational Beliefs: BUDDHISM marital status: Current Living Situation: Spouse and Family Current Living Situation Comment: , SON,HIS GIRLFRIEND AND HIS 3 CHI LDREN. Other Information That Helps Us Care for You: No Feels Safe at Home: Yes Assistive Devices: CPAP Review of Systems Review of Systems: At least ten systems reviewed and negative except as noted in the HPI. Physical Exam Physical Exam: General Appearance: WD/WN, vitals as above, NAD, sitting up in bed, pleasant, conversing easily Head: normocephalic, atraumatic Eyes: normal inspection, PERRL, conjunctivae normal ENT: external ear and nose normal, oropharynx normal Neck: normal visual inspection, trachea midline, no thyromegaly Respiratory: normal respiratory effort, lungs clear to auscultation, no wheeze, rales, rhonchi. No accessory muscle use Cardiovascular: regular rate, rhythm, no murmur, normal peripheral pulses, no B LE edema Abdomen/GI: normal bowel sounds, soft, nontender, no hepatosplenomegaly Extremities/Musculoskeletal: Spinal dressing c/d/i, KAM drain visualized. No cyanosis or clubbing, extremities motor strength 5/5 Neurologic: PERRL, no dysarthria, CN's II-XI intact bilaterally and moves all extremities Psychiatric: A+Ox3, euthymic affect Skin: no rashes, normal color, warm/dry Results & Data Results & Data Vital Signs (Past 12 Hours) Vital Signs Temp Pulse Resp BP Pulse Ox O2 Del Method O2 Flow Rate 02/17/23 16:55 76 8 L 123/67 98 Oxymask 3 02/17/23 16:45 66 14 127/73 98 Oxymask 3 02/17/23 17:15 66 12 129/72 97 Oxymask 3 02/17/23 17:05 75 15 123/67 97 Oxymask 3 02/17/23 16:35 74 15 119/70 99 Oxymask 5 02/17/23 16:25 36.5 C 76 18 126/71 98 Oxymask 7 02/17/23 12:00 Room Air, CPAP 02/17/23 12:00 36.9 C 56 L 18 169/80 H 99 Room Air, CPAP (2) Hypertension Hypertension type: essential hypertension Qualified Code(s): I10 - Essential (primary) hypertension (3) Hyperlipidemia Hyperlipidemia type: unspecified Qualified Code(s): E78.5 - Hyperlipidemia, unspecified
[2023-02-17] MEDS ORDERED: HYDROmorphone INJ 1 MG/ML SYRINGE IV PRN (18:23)
[2023-02-17] MEDS ORDERED: ONDANSETRON 4 MG OD TAB PO PRN (18:23)
[2023-02-17] MEDS ORDERED: SOD PHOSPHATE/SOD BIPHOSPHATE ENEMA 132 ML BTL PR PRN (18:23)
[2023-02-17] MEDS ORDERED: DO NOT ADMINISTER PNEUMOCOCCAL VACCINE PRN (18:23)
[2023-02-17] MEDS ORDERED: diphenhydrAMINE Capsule 25 MG CAP PO PRN (18:23)
[2023-02-17] MEDS ORDERED: FAMOTIDINE 20 MG TAB PO PRN (18:23)
[2023-02-17] MEDS ORDERED: CYCLOBENZAPRINE HCL 10 MG TAB PO PRN (18:23)
[2023-02-17] MEDS ORDERED: METOCLOPRAMIDE HCL INJ 5 MG/ML 2 ML VIAL IV PRN (18:23)
[2023-02-17] MEDS ORDERED: DO NOT ADMINISTER FLU VACCINE PRN (18:23)
[2023-02-17] MEDS ORDERED: hydrOXYzine HCl 25 MG TAB PO PRN (18:23)
[2023-02-17] MEDS ORDERED: NALOXONE HCL 0.4 MG/1 ML VIAL/CARP IV PRN (18:23)
[2023-02-17] MEDS ORDERED: LORazepam 2 MG/1 ML VIAL IV PRN (18:23)
[2023-02-17] MEDS ORDERED: LORazepam 0.5 MG TAB PO PRN (18:23)
[2023-02-17] MEDS ORDERED: PROMETHAZINE HCL 12.5 MG in SODIUM CHLORIDE 0.9% 50 ML IV PRN (18:23)
[2023-02-17] MEDS ORDERED: ALUMINUM/MAGNESIUM SUSP 30 ML UDC PO PRN (18:23)
[2023-02-17] MEDS ORDERED: ACETAMINOPHEN 1,000 MG/100 ML VIAL IV PRN (18:23)
[2023-02-17] MEDS ORDERED: HYDROmorphone INJ 0.5 MG/0.5 ML SYR IV PRN (18:23)
[2023-02-17] MEDS ORDERED: bisacodyL 10 MG SUPP PR PRN (18:23)
[2023-02-17] MEDS ORDERED: MAGNESIUM HYDROXIDE SUSP 30 ML UDC PO PRN (18:23)
[2023-02-17] MEDS: LACTATED RINGER'S 1,000 ML IV SCH (19:44)
[2023-02-17] MEDS: DOCUSATE SODIUM/SENNA 50/8.6MG TAB PO SCH (20:49)
[2023-02-17] MEDS: PROPRANOLOL HCL 10 MG TAB PO SCH ×2 (20:49→20:50)
[2023-02-17] MEDS: ATORVASTATIN 40 MG TAB PO SCH (20:49)
[2023-02-17] MEDS: CETIRIZINE HCL 10 MG TABLET PO SCH (20:49)
[2023-02-17] MEDS: PANTOprazole 40 MG TAB PO SCH (20:49)
[2023-02-17] MEDS: CLINDAMYCIN/D5W 600 MG/50 ML BAG IV SCH (22:32)
[2023-02-17] MEDS: ACETAMINOPHEN 500 MG TAB PO PRN (22:35)
[2023-02-17] MEDS: traMADol HCL 50 MG TABLET PO PRN (22:35)
[2023-02-18] MEDS: traMADol HCL 50 MG TABLET PO PRN (04:05)
[2023-02-18] MEDS: LACTATED RINGER'S 1,000 ML IV SCH (05:45)
[2023-02-18] MEDS: LEVOTHYROXINE SODIUM 100 MCG TABLET PO SCH (06:12)
[2023-02-18] MEDS: ACETAMINOPHEN 500 MG TAB PO PRN (06:12)
[2023-02-18] MEDS: POLYETHYLENE (MIRALAX) 17 GM PACK PO SCH ×3 (06:16→17:29)
[2023-02-18] MEDS: CLINDAMYCIN/D5W 600 MG/50 ML BAG IV SCH (06:33)
[2023-02-18 07:03] LABS: Basophils # (auto) 0.03 K/uL (0-0.2); Basophils % (auto) 0.2 %; Hematocrit (blood only) 35.2 % (37.0-47.0); Hemoglobin 11.6 g/dl (12.0-16.0); Immature Granulocytes % (auto) 0.8 %; Lymphocytes # (auto) 1.49 K/uL (1.2-3.4); Lymphocytes % (auto) 11.9 %; Mean Corpuscular Hemoglobin 30.7 pg (25.0-34.0); Mean Corpuscular Volume 93.1 fL (80.0-100.0); Monocytes # (auto) 0.87 K/uL (0.11-0.59); Neutrophils # (auto) 9.98 K/uL (1.40-6.50); Neutrophils % (auto) 80.1 %; Platelet Count 121 K/uL (130-400); RDW Coefficient of Variation 13.6 % (11.5-14.5); RDW Standard Deviation 46.6 fL (36.4-46.3); Red Blood Count 3.78 M/uL (4.20-5.40); White Blood Count 12.47 K/ul (4.8-10.8)
[2023-02-18 07:15] LABS: BUN Creatinine Ratio 14.3 (10-20); Calcium 8.4 mg/dl (8.6-10.3); Est GFR (African American) 109.1 ml/min; Est GFR (Non-African American) 94.1 ml/min; Potassium 4.2 mmol/L (3.5-5.1)
--- NOTE | 2023-02-18 08:06 | Fluoroscopy Report ---
FL lumbar spine 2-3V CLINICAL HISTORY: Hardware removal and decompression and fusion. COMPARISON STUDY: Lumbar spine radiographs March 03, 2013. FLUOROSCOPY TIME: 16 seconds. Ka, r: 13.24 mGy FLUOROSCOPIC IMAGES: 2 FINDINGS: Previous L4-L5 discectomy is noted with interbody spacer placement. Interval L2-L3 and L3-L 4 discectomy with interbody spacer placement are noted. Posterior decompression is noted. There are b ilateral pedicle screws at the L2, L3, L4 and L5 levels. IMPRESSION: Fluoroscopy provided during hardware removal with subsequent L2-L3 and L3-L4 discectomie s and bilateral pedicle screw fusion from L2 through L5. ACT 112: Negative or not required by law. Electronically signed by: Peter Cochran M.D. 02/18/2023 8:05 AM
[2023-02-18] MEDS: CHOLECALCIFEROL 1,000 UNITS 25 MCG TAB PO SCH (08:25)
[2023-02-18] MEDS: MONTELUKAST SODIUM 10 MG TABLET PO SCH (08:26)
[2023-02-18] MEDS: dexAMETHasone 6 MG in SYRINGE 0 ML IV SCH (08:26)
[2023-02-18] MEDS: ADVANCED PROBIOTIC 1250 MG CAPSULE PO SCH (08:26)
[2023-02-18] MEDS: PANTOprazole 40 MG TAB PO SCH ×2 (08:27→20:54)
--- NOTE | 2023-02-18 08:28 | Orthopedic Progress Note ---
Date of Service February 18, 2023 Assessment & Plan (1) Neurogenic claudication due to lumbar spinal stenosis: Plan: This time initiate physical therapy monitor KAM operatively discharge home in the next few days. Admission and Anticipated Discharge Date Admission Date: February 17, 2023 Subjective Back pain controlled leg pain improved Physical Exam Physical Exam: Patient is in bed. She is comfortable. Is constricted testing. Results & Data Vital Signs (Past 12 Hours) Vital Signs Temp Pulse Pulse Resp BP Pulse Ox O2 Del Method 02/18/23 07:23 36.6 C 54 L 16 102/57 L 97 Room Air 02/18/23 03:44 36.5 C 56 L 17 110/66 97 Room Air, Nasal CPAP 02/18/23 02:25 83 23 95 02/17/23 23:25 57 L 21 95 02/17/23 22:36 36.6 C 61 17 127/65 96 Room Air 02/17/23 20:50 57 L 18 97 Room Air 02/17/23 20:39 36.8 C 61 18 125/68 96 Room Air O2 Flow Rate 02/18/23 07:23 02/18/23 03:44 02/18/23 02:25 3 02/17/23 23:25 3 02/17/23 22:36 02/17/23 20:50 02/17/23 20:39
[2023-02-18] MEDS: PROPRANOLOL HCL 10 MG TAB PO SCH ×2 (08:29→20:54)
[2023-02-18] MEDS: oxyCODONE HCL IR 5 MG TAB (IMMEDIATE RELEASE) PO PRN ×2 (12:06→19:37)
--- NOTE | 2023-02-18 13:35 | Hospitalist Progress Note ---
Date of Service February 18, 2023 Assessment & Plan (1) S/P spinal surgery: Plan: This is a 67yo F with PMH of HTN, HLD, hypothyroidism, GERD, tobacco use and other medical problems listed below who is POD#0 s/p removal of instrumentation L4-L5, lumbar decompression bilaterally facetectomies and foraminotomies L2-L3 L3-L4 and posterior spinal fusion L2-L4, placement posterior instrumentation L2- L5 by Dr. Philip. POD#1 s/p removal of instrumentation L4-L5, exploration of fusion L4-5, lumbar decompression bilaterally facetectomies and foraminotomies L2-L3 L3-L4 and posterior spinal fusion L2-L4, placement posterior instrumentation L2-L5 by Dr. Philip Per ortho for pain control, wound care, anticoagulation and activities Continue incentive spirometry, PT/OT when appropriate Acute blood loss anemia Post-operative, likely dilutional effect contributing as well Monitor H&H- hgb 11.6 today (pre-op hgb 14.6, EBL 250ml) BP lower end of normal, asymptomatic thus far - consider maintenance fluids (2) Hypertension: Plan: Normotensive. Continue propranolol BID with hold parameters (3) Hyperlipidemia: Plan: Continue atorvastatin (4) Tobacco use: Plan: Smokes 0.75 ppd. Discussed importance of smoking cessation for wound healing. Declined nicotine patch (5) Hypothyroidism: Plan: Continue levothyroxine DVT Ppx: SCDs per ortho Code status: FULL PCP: Andreina Silverio ([facility]) Dispo: Per primary service I spent a total of 35 minutes coordinating, documenting, and providing care for this patient excluding time spent in the performance of separately billed serv ices. Admission and Anticipated Discharge Date Admission Date: February 17, 2023 Supervising Physician Co-Signing Physician Notes Patient was seen and examined independently at bedside. Chart reviewed. Case discussed with Lula Herr PA-C and agree with the documentation above. In summary, this is a 67-year-old female with lumbar spinal stenosis with neurogenic claudication status post lumbar spinal surgery by Dr. Philip yesterday. Uneventful postoperative period. Pain is controlled. Tolerating diet well. Still on Ortiz. Passed gas, no bowel movement yet. Awaiting physical therapy during my encounter. Chronic medical condition stable. Rest as per the note above. Subjective Seen and examined in 321. Feeling well today with minimal surgical site pain. Transferred to bedside chair where she is more comfortable. Anticipating PT in the next hour, no significant changes overnight. No F/C, lightheadedness, CP, SOB, N/V, abdominal pain, dysuria, diarrhea. Passing flatus. Ortiz catheter in place. Review of Systems Review of Systems: At least ten systems reviewed and negative except as noted in the HPI. Physical Exam Physical Exam: Gen: WD/WN, NAD, sitting in bedside chair, A&Ox3 HEENT: Normocephalic, atraumatic, conjunctivae moist, sclerae anicteric, mucous membranes moist Lung: Clear to Auscultation bilaterally, no wheezes/rales/rhonchi Heart: Regular rate, regular rhythm, no murmurs, rubs, or gallops Abdomen: Soft, NT, ND +BS x 4 Extremities: Spinal dressing c/d/i, KAM drain visualized, no edema Skin: Warm, no rash Results & Data Results & Data Vital Signs (Past 12 Hours) Vital Signs Temp Pulse Pulse Resp BP Pulse Ox O2 Del Method 02/18/23 11:49 36.6 C 52 L 16 98/57 L 99 Room Air 02/18/23 08:28 72 18 95 Room Air 02/18/23 07:23 36.6 C 54 L 16 102/57 L 97 Room Air 02/18/23 03:44 36.5 C 56 L 17 110/66 97 Room Air, Nasal CPAP 02/18/23 02:25 83 23 95 O2 Flow Rate 02/18/23 11:49 02/18/23 08:28 02/18/23 07:23 02/18/23 03:44 02/18/23 02:25 3 Laboratory Results Short CBC 02/18/23 Range/Units 06:33 WBC 12.47 H (4.8-10.8) K/ul Hgb 11.6 L (12.0-16.0) g/dl Hct 35.2 L (37.0-47.0) % Plt Count 121 L (130-400) K/uL BMP 02/18/23 06:33 Sodium 137 Potassium 4.2 Chloride 105 Carbon Dioxide 28 BUN 9 Creatinine 0.63 Glucose 107 H Calcium 8.4 L Diagnostic Findings Lumbar Spine X-Ray 02/17/23 13:15 FL lumbar spine 2-3V CLINICAL HISTORY: Hardware removal and decompression and fusion. COMPARISON STUDY: Lumbar spine radiographs March 03, 2013. FLUOROSCOPY TIME: 16 seconds. Ka, r: 13.24 mGy FLUOROSCOPIC IMAGES: 2 FINDINGS: Previous L4-L5 discectomy is noted with interbody spacer placement. Interval L2-L3 and L3-L4 discectomy with interbody spacer placement are noted. Posterior decompression is noted. There are bilateral pedicle screws at the L2, L3, L4 and L5 levels. IMPRESSION: Fluoroscopy provided during hardware removal with subsequent L2-L3 and L3-L4 discectomies and bilateral pedicle screw fusion from L2 through L5. ACT 112: Negative or not required by law. Electronically signed by: Peter Cochran M.D. 02/18/2023 8:05 AM (2) Hypertension Hypertension type: essential hypertension Qualified Code(s): I10 - Essential (primary) hypertension (3) Hyperlipidemia Hyperlipidemia type: unspecified Qualified Code(s): E78.5 - Hyperlipidemia, unspecified
[2023-02-18] MEDS: CETIRIZINE HCL 10 MG TABLET PO SCH (20:54)
[2023-02-18] MEDS: DOCUSATE SODIUM/SENNA 50/8.6MG TAB PO SCH (20:54)
[2023-02-18] MEDS: ATORVASTATIN 40 MG TAB PO SCH (20:54)
[2023-02-19] MEDS: POLYETHYLENE (MIRALAX) 17 GM PACK PO SCH ×5 (00:40→23:05)
[2023-02-19] MEDS: oxyCODONE HCL IR 5 MG TAB (IMMEDIATE RELEASE) PO PRN ×4 (00:42→18:06)
[2023-02-19] MEDS: LEVOTHYROXINE SODIUM 100 MCG TABLET PO SCH (06:20)
[2023-02-19 06:57] LABS: Hematocrit (blood only) 31.1 % (37.0-47.0); Hemoglobin 10.6 g/dl (12.0-16.0); Mean Corpuscular Hemoglobin 30.7 pg (25.0-34.0); Mean Corpuscular Hgb Conc 34.1 g/dL (32.0-36.0); Mean Corpuscular Volume 90.1 fL (80.0-100.0); Mean Platelet Volume 9.3 fL (9.4-12.4); Platelet Count 120 K/uL (130-400); RDW Coefficient of Variation 13.8 % (11.5-14.5); Red Blood Count 3.45 M/uL (4.20-5.40); White Blood Count 11.93 K/ul (4.8-10.8)
[2023-02-19 07:13] LABS: BUN Creatinine Ratio 20.8 (10-20); Calcium 8.5 mg/dl (8.6-10.3); Creatinine Clr Calc Pharmacy 71.9 ml/min; Est GFR (African American) 93.3 ml/min; Est GFR (Non-African American) 80.5 ml/min; Potassium 3.9 mmol/L (3.5-5.1)
[2023-02-19] MEDS: dexAMETHasone 6 MG in SYRINGE 0 ML IV SCH (08:08)
[2023-02-19] MEDS: ADVANCED PROBIOTIC 1250 MG CAPSULE PO SCH (08:08)
[2023-02-19] MEDS: MONTELUKAST SODIUM 10 MG TABLET PO SCH (08:09)
[2023-02-19] MEDS: PANTOprazole 40 MG TAB PO SCH ×2 (08:09→21:00)
[2023-02-19] MEDS: PROPRANOLOL HCL 10 MG TAB PO SCH ×2 (08:10→21:00)
[2023-02-19] MEDS: CHOLECALCIFEROL 1,000 UNITS 25 MCG TAB PO SCH (08:10)
--- NOTE | 2023-02-19 10:21 | Orthopedic Progress Note ---
Date of Service February 19, 2023 Assessment & Plan (1) Neurogenic claudication due to lumbar spinal stenosis: Plan: At this time continue physical therapy monitor KAM output anticipate discharge home tomorrow. Admission and Anticipated Discharge Date Admission Date: February 17, 2023 Subjective Back pain controlled leg pain improved Physical Exam Physical Exam: Patient is comfortable. She has good strength testing. Results & Data Vital Signs (Past 12 Hours) Vital Signs Temp Pulse Pulse Resp BP Pulse Ox O2 Del Method 02/19/23 07:20 36.7 C 73 14 95/54 L 98 Room Air 02/18/23 22:54 36.9 C 58 L 16 110/61 97 Room Air 02/18/23 22:33 56 L 28 H 96
--- NOTE | 2023-02-19 14:12 | Hospitalist Progress Note ---
Date of Service February 19, 2023 Assessment & Plan (1) S/P spinal surgery: Plan: This is a 67yo F with PMH of HTN, HLD, hypothyroidism, GERD, tobacco use and other medical problems listed below who is POD#2 s/p removal of instrumentation L4-L5, lumbar decompression bilaterally facetectomies and foraminotomies L2-L3 L3-L4 and posterior spinal fusion L2-L4, placement posterior instrumentation L2- L5 by Dr. Philip. POD#2 s/p removal of instrumentation L4-L5, exploration of fusion L4-5, lumbar decompression bilaterally facetectomies and foraminotomies L2-L3 L3-L4 and posterior spinal fusion L2-L4, placement posterior instrumentation L2-L5 by Dr. Philip Per ortho for pain control, wound care, anticoagulation and activities Continue incentive spirometry, PT/OT when appropriate Acute blood loss anemia Post-operative, likely dilutional effect contributing as well Monitor H&H- stable - hgb 10.6 (hgb 11.6 yesterday) BP lower end of normal, asymptomatic thus far - consider maintenance fluids (2) Hypertension: Plan: Normotensive. Continue propranolol BID with hold parameters (3) Hyperlipidemia: Plan: Continue atorvastatin (4) Tobacco use: Plan: Smokes 0.75 ppd. Discussed importance of smoking cessation for wound healing. Declined nicotine patch (5) Hypothyroidism: Plan: Continue levothyroxine DVT Ppx: SCDs per ortho Code status: FULL PCP: Andreina Silverio ([facility]) Dispo: Per primary service I spent a total of 25 minutes coordinating, documenting, and providing care for this patient excluding time spent in the performance of separately billed services. Admission and Anticipated Discharge Date Admission Date: February 17, 2023 Supervising Physician Co-Signing Physician Notes Patient was seen and examined independently at bedside. Chart reviewed. Case discussed with Lula Herr PA-C and agree with the documentation above. In summary, this is a 67-year-old female with lumbar spinal stenosis with neurogenic claudication status post lumbar spinal surgery by Dr. Philip. Uneventful postoperative period. Pain is controlled. Tolerating diet well. Voiding without issues. Passed gas, no bowel movement yet. Doing well with PT. Hoping to go home tomorrow. Chronic medical condition stable. Rest as per the note above. Subjective Seen and examined in 321. Continues to feel well. Ambulating in the jain and participating with PT without issue. Anticipating dc home tomorrow. No F/C, lightheadedness, CP, SOB, N/V, abdominal pain, dysuria, diarrhea. Passing flatus but no post op bowel movement yet. Review of Systems Review of Systems: At least ten systems reviewed and negative except as noted in the HPI. Physical Exam Physical Exam: Gen: WD/WN, NAD, sitting in bedside chair, A&Ox3 HEENT: Normocephalic, atraumatic, conjunctivae moist, sclerae anicteric, mucous membranes moist Lung: Clear to Auscultation bilaterally, no wheezes/rales/rhonchi Heart: Regular rate, regular rhythm, no murmurs, rubs, or gallops Abdomen: Soft, NT, ND +BS x 4 Extremities: Spinal dressing c/d/i, KAM drain visualized, no edema Skin: Warm, no rash Results & Data Results & Data Vital Signs (Past 12 Hours) Vital Signs Temp Pulse Resp BP Pulse Ox O2 Del Method 02/19/23 07:20 36.7 C 73 14 95/54 L 98 Room Air Laboratory Results Short CBC 02/19/23 Range/Units 06:31 WBC 11.93 H (4.8-10.8) K/ul Hgb 10.6 L (12.0-16.0) g/dl Hct 31.1 L (37.0-47.0) % Plt Count 120 L (130-400) K/uL BMP 02/19/23 06:31 Sodium 137 Potassium 3.9 Chloride 105 Carbon Dioxide 29 BUN 16 Creatinine 0.77 Glucose 99 Calcium 8.5 L Diagnostic Findings Lumbar Spine X-Ray 02/17/23 13:15 FL lumbar spine 2-3V CLINICAL HISTORY: Hardware removal and decompression and fusion. COMPARISON STUDY: Lumbar spine radiographs March 03, 2013. FLUOROSCOPY TIME: 16 seconds. Ka, r: 13.24 mGy FLUOROSCOPIC IMAGES: 2 FINDINGS: Previous L4-L5 discectomy is noted with interbody spacer placement. Interval L2-L3 and L3-L4 discectomy with interbody spacer placement are noted. Posterior decompression is noted. There are bilateral pedicle screws at the L2, L3, L4 and L5 levels. IMPRESSION: Fluoroscopy provided during hardware removal with subsequent L2-L3 and L3-L4 discectomies and bilateral pedicle screw fusion from L2 through L5. ACT 112: Negative or not required by law. Electronically signed by: Peter Cochran M.D. 02/18/2023 8:05 AM (2) Hypertension Hypertension type: essential hypertension Qualified Code(s): I10 - Essential (primary) hypertension (3) Hyperlipidemia Hyperlipidemia type: unspecified Qualified Code(s): E78.5 - Hyperlipidemia, unspecified
[2023-02-19] MEDS: traMADol HCL 50 MG TABLET PO PRN (20:58)
[2023-02-19] MEDS: CETIRIZINE HCL 10 MG TABLET PO SCH (20:59)
[2023-02-19] MEDS: DOCUSATE SODIUM/SENNA 50/8.6MG TAB PO SCH (20:59)
[2023-02-19] MEDS: ATORVASTATIN 40 MG TAB PO SCH (20:59)
[2023-02-20] MEDS: LEVOTHYROXINE SODIUM 100 MCG TABLET PO SCH (06:06)
[2023-02-20] MEDS: POLYETHYLENE (MIRALAX) 17 GM PACK PO SCH (06:06)
[2023-02-20] MEDS: ADVANCED PROBIOTIC 1250 MG CAPSULE PO SCH (08:02)
[2023-02-20] MEDS: MONTELUKAST SODIUM 10 MG TABLET PO SCH (08:03)
[2023-02-20] MEDS: CHOLECALCIFEROL 1,000 UNITS 25 MCG TAB PO SCH (08:03)
[2023-02-20] MEDS: PROPRANOLOL HCL 10 MG TAB PO SCH (08:03)
[2023-02-20] MEDS: PANTOprazole 40 MG TAB PO SCH (08:03)
[2023-02-20] MEDS: dexAMETHasone 6 MG in SYRINGE 0 ML IV SCH (08:04)
--- NOTE | 2023-02-20 09:24 | Discharge Summary ---
Date of Service February 20, 2023 Admission HPI Per Admitting Provider Patient has undergone extensive course of nonoperative care and he has continued back and bilateral leg pain is here for surgical intervention. Principal Diagnosis Lumbar spinal stenosis with neurogenic medication Discharge Data Allergies Allergy/AdvReac Type Severity Reaction Status Date / Time aspirin Allergy Unknown anaphylaxis Verified 02/17/23 11:57 Penicillins Allergy Unknown HX HIVES Verified 02/17/23 11:57 Consultations 02/17/23 18:23 Consult Hospitalist Routine Procedures Performed Operation Date: 02/17/23 13:15 Actual Procedures p L2-L4 Decompression and Fusion, Spinal Cord Monitoring(Not Applicable) - Jose Philip DO s L4-L5 Hardware Removal(Not Applicable) - Jose Philip DO Ordered Studies 02/17/23 13:15 FL lumbar spine 2-3V Routine Hospital Course (1) Neurogenic claudication due to lumbar spinal stenosis: Patient went lumbar decompression fusion tolerated as well as taken orthopedic floor postoperatively postop day #1 she was up and ambulating progress postop day #2 on postop day 3 pain was well controlled bowels working properly. EXTR strength testing. Subsequent discharge home. Discharge orders and instructions found in the chart for further review. Total Time Total Time Spent Total Time Spent (In Minutes): 20 minutes Discharge Plan Discharge Items Patient Disposition: Home - Self-Care Reason For Visit: Lumbar Region Spinal Stenosis Without Neurogenic Discharge Diagnosis: Lumbar spinal stenosis with neurogenic claudication Activity: As commented below Non-emergency contact: Primary Care Provider Call non-emergency contact if: you have any medication questions Follow-up/Referrals: Andreina Silverio DO [Primary Care Provider] - Diet: Regular Addtl Attending Provider Instructions: ACTIVITY RECOMMENDATIONS: SELF CARE INSTRUCTIONS AFTER THORACIC/LUMBAR FUSIONS 1. You may walk to your tolerance. It is good exercise for your legs and back. Expect some back and intermittent leg aches and pains. 2. You may perform "counter-top" level activities (make a sandwich, tyrone with a project, etc.). 3. No bending or lifting of more than 10 pounds or back twisting of any nature (roll like a log when turning in bed). 4. You may ride in a car for 20-30 minutes at a time. No driving until after your first visit with your doctor. 5. Frequent changes of position and restricting sitting to 30 minutes at a time will help limit the amount of back spasms and stiffness you may experience. 6. You may discontinue the use of ambulatory aids (cane, crutches, etc.) once your strength and confidence allow. 7. You may investment banker the shower and let water strike your incision when you arrive home at least once daily. Do not take a tub bath, sit in a hot tub or go into a swimming pool until after your first recheck in the office. SPECIAL CARE INSTRUCTIONS: VERY IMPORTANT TO READ AND REVIEW A. Your surgical incision has been closed with a cosmetic suture under the skin that will dissolve in about 6 weeks. In 14 days, you can use a pair of clean scissors and cut the suture that is left outside of the skin at the ends of your incision. 1. The small skin tapes can be removed 7 days after surgery if they have not fallen off by that point. 2. You may keep the wound open to air as much as possible to promote healing after post-op day number 5 unless told otherwise by your doctor. 3. If you think the wound looks like it is becoming infected (redness or worsening drainage) and/or you are experiencing fever, chill or worsening back pain and muscle spasms, contact the office so that we may evaluate you as soon as possible. B. Complications are uncommon, but please contact us if you have any signs or symptoms of: 1. wound infection (fever higher than 102.5 degrees F, redness, separation of wound, drainage, or increasing pain from the incision) 2. blood clots in legs (pain, swelling, redness and warmth in legs) 3. urinary tract infection (fever higher than 102.5 degrees F, burning upon urination or increased frequency of urination) 4. nerve problems (inability to walk on your toes or heels, numbness, loss of bowel or bladder control) 5. any other symptoms that concern you C. Please call the office at if you have any concerns or questions about your operation or recovery. D. No smoking! Smoking drastically decreases the chance of a solid fusion. E. Do not take any anti-inflammatory medications (Indocin, Advil, Motrin, Aspirin, Naprosyn, etc.) as these may inhibit the chance of a solid fusion. Tylenol is okay to take for pain. MANAGING PAIN AFTER SPINAL SURGERY 1. Narcotic medication is intended for short-term use and will be provided for surgical pain. Surgical pain usually lasts for a period of 4-6 weeks. Narcotic medication includes Percocet, Vicodin, Darvocet, Tylenol #3 or Lortab. 2. Longer-term pain is more appropriately treated with non-narcotic medication such as Tylenol ES. 3. Muscle spasm is not appropriately treated with narcotics. Muscle relaxers such as Soma, Flexeril or Skelaxin can be used along with Tylenol ES. 4. Remember that we all live with some "aches and pains". This is not unusual or uncommon after an injury or as we get older. a. Back pain is expected and may include muscle spasms for 4 to 6 weeks after surgery. The pain should gradually improve. If the pain worsens for no apparent reason, please contact the office. b. Intermittent leg pain may also be experienced and should not be concerned about unless it worsens for no apparent reason. If so, please contact the office. 5. We will provide appropriate medication within the normal guidelines of their prescribed use. We will also be very cautious and aware of potential abuse and extended duration of patients' medication needs. a. Pain medications are for your comfort and to assist with sleep and rest so that the tissue can heal. They are not provided in order to return to normal activity and should not be used through the day. To do so or worsening pain at night can result from ongoing tissue damage and develo pment of tolerance to the prescribed medicine. 6. Please allow 2-3 days to process refills. Prescriptions will not be mailed but must be picked up at the office. FOLLOW UP VISIT: Keep your scheduled follow-up appointment. Any questions, please call the office at . Pending Studies at Discharge: No Stand-Alone Forms: My [employer], Smoking Cessation Medications and DC Order Prescriptions: New tramadol 50 mg tablet 50 mg PO Q6H PRN (Reason: pain, moderate) Qty: 30 0RF oxycodone 5 mg tablet 5 mg PO Q6H PRN (Reason: pain) Qty: 30 0RF Continued levothyroxine 100 mcg Tablet 100 mcg PO QAM cyclobenzaprine 10 mg Tablet 10 mg PO HS PRN (Reason: MUSCLE SPASMS) atorvastatin 40 mg Tablet 40 mg PO HS propranolol 10 mg Tablet 10 mg PO BID pantoprazole [Protonix] 40 mg Tablet,Delayed Release (Dr/Ec) 40 mg PO BID montelukast [Singulair] 10 mg Tablet 10 mg PO QAM levocetirizine [Xyzal] 5 mg Tablet 5 mg PO HS cholecalciferol (vitamin D3) [Vitamin D3] 2,000 unit Capsule 2,000 unit PO QAM Probiotic 10 billion cell Capsule 1 dose PO QAM acetaminophen [Pain Reliever (acetaminophen)] 500 mg tablet 1,000 mg PO UD PRN (Reason: ACHES AND PAINS) Discharge Orders: Discharge Order (Routine); Ordered 02/20/23 Ordered By: Jose Philip Admission Data Admit Date/Time: 02/17/23 16:10 Attending Provider: Jose Philip Admit Provider: Jose Philpi Primary Care Provider: Andreina Silverio Other Providers: Safia Cherry ; Lula Herr ; Jarrett Lovelace
--- NOTE | 2023-02-20 11:50 | Hospitalist Progress Note ---
Date of Service February 20, 2023 Assessment & Plan (1) S/P spinal surgery: Plan: This is a 67yo F with PMH of HTN, HLD, hypothyroidism, GERD, tobacco use and other medical problems listed below who is POD#2 s/p removal of instrumentation L4-L5, lumbar decompression bilaterally facetectomies and foraminotomies L2-L3 L3-L4 and posterior spinal fusion L2-L4, placement posterior instrumentation L2- L5 by Dr. Philip. POD#3 s/p removal of instrumentation L4-L5, exploration of fusion L4-5, lumbar decompression bilaterally facetectomies and foraminotomies L2-L3 L3-L4 and posterior spinal fusion L2-L4, placement posterior instrumentation L2-L5 by Dr. Philip Further management per orthopedics. (2) Hypertension: Plan: Normotensive. Continue propranolol (3) Hyperlipidemia: Plan: Continue atorvastatin (4) Tobacco use: Plan: Smokes 0.75 ppd. Recommended quitting (5) Hypothyroidism: Plan: Continue levothyroxine Dispo- Being discharged per primary team. Stable. Admission and Anticipated Discharge Date Admission Date: February 17, 2023 Subjective Patient was seen and examined at bedside in presence of her . She feels ready to go home today. Her KAM drain fell off yesterday. Her pain is controlled. No fever, chills, chest pain or shortness of breath nausea or vomiting Review of Systems Review of Systems: All systems reviewed & are unremarkable except as noted in Subjective Physical Exam Physical Exam: General: Sitting comfortably in bed, not in distress, on room air HEENT: EOMI, ADRIAN, MMM Chest: Clear breath sounds bilaterally, no wheezes or crackles CVS: Regular rate and rhythm, normal heart sounds, no murmur Abdomen: Soft, non tender, not distended, normal bowel sounds Neuro: Awake, alert, oriented, conversing well, non focal Extremities: No cyanosis, clubbing or edema Back incision site covered with dressing Results & Data Results & Data Vital Signs (Past 12 Hours) Vital Signs Temp Pulse Pulse Pulse Resp BP Pulse Ox 02/20/23 09:59 37.0 C 52 L 59 L 16 127/69 98 02/20/23 07:17 37.0 C 59 L 16 127/69 98 02/20/23 02:56 59 L 13 92 O2 Del Method FiO2 02/20/23 09:59 02/20/23 07:17 Room Air 06/17/23 02:56 21 (2) Hypertension Hypertension type: essential hypertension Qualified Code(s): I10 - Essential (primary) hypertension (3) Hyperlipidemia Hyperlipidemia type: unspecified Qualified Code(s): E78.5 - Hyperlipidemia, unspecified
== END 2023-02-20 11:37 | disposition home or self-care (01) | DRG 454 ==
LOC: ASU 11:31 → 3E 16:10